=== PATIENT | male | born 2005 | race Caucasian/White ===

== ENCOUNTER 2024-02-15 13:34 | Emergency (ER) | payer SELFPAY ==
[2024-02-15] MEDS: Cephalexin 500 MG Cap PO ONE (14:43)
[2024-02-15] MEDS: Sulfamethoxazole/Trimethoprim 800-160 MG Tab PO ONE (14:43)
== END 2024-02-15 15:00 | disposition home or self-care (01) ==
LOC: JD.ED 13:34
DX: L02.416 Cutaneous abscess of left lower limb (principal); L03.116 Cellulitis of left lower limb; F17.210 Nicotine dependence, cigarettes, uncomplicated; Z79.899 Other long term (current) drug therapy
CPT/HCPCS: 99283; A9270; 99284